=== PATIENT | female | born 1935 | race Caucasian/White ===

== ENCOUNTER 2020-05-09 16:05 | Emergency (ER) | payer MEDICARE, SELFPAY ==
[2020-05-09] VITALS (28 sets, daily range): BP systolic 67–176; BP diastolic 43–96; PULSE 70–108; RESP 5–36; TEMP 35.8; O2SAT 85–100
--- NOTE | ~2020-05-09 | CT_ITS ---
EXAMINATION: CT cervical spine wo con DATE: 05/09/2020 17:35 INDICATION: Altered mental status. Neck pain. TECHNIQUE: Computed tomography (CT) of the cervical spine was performed without intravenous contrast. The dose-length product was 493 mGy-cm. Automated exposure control and iterative reconstruction tech nique were employed. COMPARISON: None FINDINGS: Study limited by motion artifact. There is fusion at C2-3. There is degenerative anterolist hesis at C3-4 and C4-5. There is disc narrowing and endplate hypertrophy at multiple levels including C4-5, C5-6, C6-7 and C7-T1. Odontoid process within normal limits. There is moderate multilevel face t and uncinate hypertrophy. There is patchy parenchymal consolidation of the upper lobes, partially v isualized. There is an endotracheal and NG tube present. IMPRESSION: 1. No acute fracture of the cervical spine. 2: Severe cervical spondylosis. Reviewed, dictated and finalized at location A. NE BUILDUP MECHANIC
--- NOTE | ~2020-05-09 | CT_ITS ---
EXAMINATION: CT brain wo con DATE: 05/09/2020 17:35 INDICATION: Altered mental status. Hypoxia. Vomiting. TECHNIQUE: Computed tomography (CT) of the head was performed without intravenous contrast. The dose- length product was 605.33 mGy-cm. Automated exposure control and iterative reconstruction technique w ere employed. COMPARISON: None FINDINGS: Generalized atrophy. No acute infarction, mass or significant mass effect. Prominence of th e left frontal and parietal extra-axial space which may be due to atrophy, subdural hygroma or chroni c subdural hematoma. No midline shift. No ventriculomegaly. Basilar cisterns are patent. Mild mucosal thickening of the ethmoid sinuses. Air-fluid levels in the sphenoid sinuses suggesting acute sinusit is. Mastoids are pneumatized. No depressed skull fractures. IMPRESSION: 1. Prominence of the left frontal and parietal extra-axial space which may be due to atrophy, subdura l hygroma or chronic subdural hematoma. 2: Moderate sinusitis, possibly acute. Reviewed, dictated and finalized at location A. Y EQUIPMENT OPERATING ENGINEER IMPRESSION: 1. Prominence of the left frontal and parietal extra-axial space which may be d ue to atrophy, subdural hygroma or chronic subdural hematoma. 2: Moderate sinusitis, possibly acute.
--- NOTE | ~2020-05-09 | CT_ITS ---
EXAMINATION: CTA chest PE abdomen pel DATE: 05/09/2020 17:51 INSTRUCTOR INDUSTRIAL DESIGN INDICATION: Hypoxia and vomiting TECHNIQUE: Computed tomographic angiography (CTA) of the chest, abdomen, and pelvis was performed wit hout and with 100 mL Omnipaque-350 intravenous contrast. The dose-length product was 2351.56 mGy-cm. Maximum intensity projection 3D-reconstructions of the aorta and other arteries were constructed by silas eckert technologist on a separate workstation. Automated exposure control and iterative reconstruction te lor were employed. COMPARISON: CT dated 07/07/2013 FINDINGS: CHEST CTA: Study is technically adequate without evidence for pulmonary embolism. Heart size normal. Small pleur al effusions. No significant pericardial effusion. There is an endotracheal tube present. NG tube coi led in the distal esophagus. There is extensive bilateral airspace consolidation involving all lobes, most confluent in the lower lobes. No significant endobronchial lesions. No thoracic lymphadenopathy . ABDOMEN AND PELVIS CTA: Fatty infiltration of the liver. Calcified granulomas of the spleen. The pancreas, right adrenal glan d and right kidney are unremarkable. There are left renal cysts. Gallbladder is present. There is mod erate gastric distention. No obstructing lesion is identified. No free air. There is a Garza catheter in the bladder. Status post hysterectomy. Colonic diverticulosis without evidence for diverticulitis . Surgical changes consistent with fusion at L4-5. Moderate lumbar spondylosis. 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 Gallbladder is present. IMPRESSION: 1. Extensive patchy bilateral airspace consolidation most confluent in the lower lobes. Differential diagnosis includes pneumonia and/or edema. 2: Small pleural effusions. 3: No evidence for pulmonary embolism. Reviewed, dictated and finalized at location A. RUCTOR INDUSTRIAL DESIGN IMPRESSION: 1. Extensive patchy bilateral airspace consolidation most confluent in the lowe r lobes. Differential diagnosis includes pneumonia and/or edema. 2: Small pleural effusions. 3: No evidence for pulmonary embolism.
--- NOTE | ~2020-05-09 | XR_ITS ---
XR chest ET placement 05/09/2020 16:44 Indication: Respiratory distress. Intubation. Procedure: AP portable chest Comparison: 07/08/2013 Findings: Endotracheal tube tip 2.4 cm above the lori. NG tube is coiled in the distal esophagus. H eart size is normal. There is bilateral extensive airspace disease with curly B lines. No significant effusion or pneumothorax. Pacemaker leads in expected position. Impression: 1: Extensive bilateral airspace disease with perihilar predominance, most likely edema versus pneumon ia. 2: NG tube coiled in the distal esophagus, recommend advancement. Reviewed, dictated and finalized at location A. DCAST TECHNICIAN Impression: 1: Extensive bilateral airspace disease with perihilar predominance, most likel y edema versus pneumonia. 2: NG tube coiled in the distal esophagus, recommend advancement.
--- NOTE | 2020-05-09 16:16 | PC.NURSE ---
IO removed from left leg with tip intact.
--- NOTE | 2020-05-09 16:23 | PC.NURSE ---
Etomidate 15 mg and [id number] mg given IV for intubation.
--- NOTE | 2020-05-09 16:26 | PC.NURSE ---
Intubated with 7.5 ET tube. Placement verified with co2 and bilateral breath sounds.
--- NOTE | 2020-05-09 16:30 | ECG_ITS ---
Measurements Intervals [place] Rate: 70 P: 155 PA: 250 QRS: -59 QRSD: 122 T: 69 QT: 472 QTc: 511 Interpretive Statements ELECTRONIC ATRIAL PACEMAKER RIGHT BUNDLE BRANCH BLOCK LEFT ANTERIOR FASCICULAR BLOCK LEFT VENTRICULAR HYPERTROPHY WITH ST-T CHANGE BASELINE ARTIFACT- I, II, III, AVR, AVF, V4-V6 ABNORMAL ECG Electronically Signed On 05-09-2020 16:50:57 ONCOLOGY REP by Tristin Henry D.O.
--- NOTE | 2020-05-09 16:44 | ED.GENADULT ---
HPI - General Adult General Chief complaint: Cardiac Arrest/CPR Stated complaint: POST CARDIAC ARREST Time Seen by Provider: 05/09/20 16:30 Source: EMS History of Present Illness HPI narrative: Patient is a 84 y/o female brought in by EMS for cardiac arrest. Patient initially called EMS for SOB after doing some raking in the yard.. When police first arrived at the scene, she was cyanotic and became unresponsive. CPR was started. She was pulseless and her rhythm was in PEA when EMS arrived. Patient was coded according to ACLS protocol. She received multiple doses of Epi and Gonzalo airway was inserted. She regained spontaneous circulation prior to arrival. EMS estimates 25 minute of downtime. Related Data Home Medications Medication Instructions Recorded Confirmed apixaban [Eliquis] mg 05/09/20 empagliflozin [Jardiance] mg 05/09/20 furosemide 05/09/20 05/09/20 lisinopril 05/09/20 lovastatin mg 05/09/20 omeprazole 05/09/20 potassium chloride [Klor-Con M20] meq PO 05/09/20 sotalol 05/09/20 tramadol 50 mg PO Q6H PRN 05/09/20 05/09/20 Allergies Allergy/AdvReac Type Severity Reaction Status Date / Time No Known Allergies Allergy Verified 05/09/20 18:32 Review of Systems Review of Systems: ROS unobtainable: Yes unobtainable due to medical condition Exam Const: Orientation/consciousness: patient obtunded and Other orientation findings (no response to painful stimuli) HENMT: Head: normocephalic Ears: external ears normal General nose exam: Normal external nose present Mouth: Yes other (Gonzalo airway in place) Eyes: General: appearance normal, both eyes and all related structures Conjunctivae: conjunctivae normal Pupils: Pupils not reactive Neck: Neck: normal visual inspection Chest: Chest palpation & inspection: normal inspection of the chest and Pacemaker present Resp: Effort & Inspection: other (manually bagged, occasional spontaneous breath) Auscultation: crackles and rales Cardio: Rate: regular rate Rhythm: regular rhythm GI: GI Palp: No abdominal tenderness and Yes Soft to palpation Skin: General skin exam: normal color and turgor normal Neuro: General: other (non response to painful stimuli) Motor exam (neuro): Other motor observations present (some jerking movement noted, no response to pain) Extrem: General: normal to inspection, full ROM and no pedal edema Course Reevaluation(s) Reevaluation #1: Discussed with family, who would like patient transferred to [place] for further evaluation. Will contact [facility] for possible transfer. Date: 05/09/20 Time: 18:25 Consultations Consultation #1: Discussed with Dr. 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 However, he will not be accepting patient to his service. Date: 05/09/20 Time: 18:18 Consultation #2: Discussed with TRINI Buenrostro (neurosurgery) at [facility], who agrees to accept the patient to ED. Dr. Mullins (EDP) will accept. Date: 05/09/20 Time: 19:40 Vital Signs Vital signs: Vital Signs Temperature 35.8 C L 05/09/20 16:02 Pulse Rate 76 05/09/20 16:02 Respiratory Rate 22 H 05/09/20 16:02 Blood Pressure 176/96 H 05/09/20 16:02 Temperature 35.8 C L 05/09/20 16:02 Pulse Rate 78 05/09/20 22:30 Respiratory Rate 32 H 05/09/20 21:08 Blood Pressure 102/78 05/09/20 21:08 Pulse Oximetry 93 05/09/20 22:30 Procedures Intubation Intubation #1: Intubation Date: 05/09/20 Intubation Time: 16:20 Time out performed: Yes sedative: Etomidate Mg Given: 15 Laryngoscope: fiber optic video scope Tube Size (cm): 7.5 Method of Intubation: orotracheal Tube Placement Confirmation: visualized tube passing through cords Patient Tolerated Procedure: well Intubation Complications: none Additional Comments: gastric content is noted in mouth and pharynx suggesting recent aspiratio
--- NOTE | 2020-05-09 16:45 | PC.NURSE ---
18 fr salem sump placed to right nare. placement verified with gastric contents and xray. copious amount of return from tube.
[2020-05-09 17:00] LABS: Basophils Absolute Auto 0.1 K/mm3 (0.0-0.1); Basophils Percent Auto 0.6 % (0.2-1.2); Eosinophils Absolute Auto 0.1 K/mm3 (0-0.3); Eosinophils Percent Auto 0.9 % (0-4.4); Hematocrit 51.9 % (37.0-47.0); Hemoglobin 16.3 g/dL (12.0-15.0); Immature Granulocyte Absolute 0.29 K/mm3 (0.00-0.031); Immature Granulocyte Percent A 2.2 % (0-0.5); Lymphocytes Absolute Auto 6.06 K/mm3 (0.9-3.2); Lymphocytes Percent Auto 46.4 % (18.3-44.2); Mean Corpuscular HGB Conc 31.4 g/dl (32-36); Mean Corpuscular Hemoglobin 28.3 pg (26-34); Mean Corpuscular Volume 90.3 fl (80-100); Mean Platelet Volume 10.3 fl (7.4-10.4); Monocytes Absolute Auto 0.5 K/mm3 (0.1-0.6); Monocytes Percent Auto 4.1 % (2.6-8.5); Neutrophils Percent Auto 45.8 % (45.5-73.1); Platelet Count Result 219 k/mm3 (150-375); Red Blood Count 5.75 M/mm3 (4.2-5.4); Red Cell Distribution Width 14.6 % (11.5-14.5); White Blood Count 13.1 K/mm3 (4.5-10.0)
--- NOTE | 2020-05-09 17:00 | PC.NURSE ---
To CT with nurse and resp staff.
[2020-05-09 17:10] LABS: INR 1.1; Prothrombin Time 14.7 Seconds (11.1-14.7)
[2020-05-09 17:11] LABS: Partial Thromboplastin Time 29.1 SECONDS (22.3-36.8)
[2020-05-09 17:11] LABS: Estimated CRCL calculation 58 ml/min; Estimated Glomerular Filt Rate > 60
[2020-05-09] MEDS: PROPOFOL IV EMULSION 200 MG/20 ML VIAL 100 MG IV PUSH (17:20)
--- NOTE | 2020-05-09 17:20 | PC.NURSE ---
Pt having jerking movements to extremities, unable to do CT due to movement. ERP aware and orders received.
[2020-05-09 17:22] LABS: Lactic Acid Reflex 8.6 mmol/L (0.7-2.1)
[2020-05-09 17:32] LABS: Albumin Level 3.9 g/dL (3.5-5.1); Alkaline Phosphatase 141 U/L (38-126); Anion Gap 12 mmol/L (8-16); Aspartate Amino Transferase 252 U/L (14-36); Bilirubin,Total 0.5 mg/dL (0.2-1.3); Blood Urea Nitrogen 17 mg/dL (7-17); Calcium 8.1 mg/dL (8.4-10.2); Carbon Dioxide 21 mmol/L (22-30); Chloride 102 mmol/L (98-107); Estimated CRCL calculation 52 ml/min; Estimated Glomerular Filt Rate 60; Glucose 324 mg/dL (65-105); Lipase 197 U/L (23-300); Potassium 5.2 mmol/L (3.4-5.0); Sodium 135 mmol/L (137-145); Troponin I 0.038 ng/mL (0.000-0.034)
[2020-05-09 17:35] LABS: Alanine Aminotransferase 136 U/L (4-35)
[2020-05-09 17:45] LABS: Alveolar/Arterial O2 Gradient 602.4 mmHg; Base Excess ABG -11.3 mEq/l (+/-2.0); Fractional Inspired Oxygen 100 %; HCO3 ABG 16.3 mEq/l (22.0-26.0); Oxygen Content ABG 16.1 %vol (16.0-22.0); Oxygen Saturation ABG 89.3 % (95.0-100.0); Oxyhemoglobin 86.6 % THb (90.0-100.0); PCO2 ABG 42.8 mmHg (35.0-45.0); PO2 ABG 67.8 mmHg (80.0-100.0); PO2 FiO2 Ratio Arterial Blood 0.68 %; Total Hemoglobin 13.2 g/dL (12.0-18.0)
[2020-05-09 17:46] LABS: Device VENTILATOR; Modified Allen's Test Pass; Site Drawn RIGHT RADIAL; pH ABG 7.199 (7.350-7.450)
[2020-05-09 17:47] LABS: Arterial Blood Gas PEEP 5 cmH2O; Arterial Blood Gas Tidal Volume 500 ml; Arterial Blood Gas Vent Mode CMV; Arterial Blood Gas Ventilator rate 14 /MIN
[2020-05-09] MEDS: SODIUM BICARBONATE 8.4% 50 MEQ/50 ML SYRINGE IV PUSH (18:00)
[2020-05-09 18:27] LABS: Add Urine Microscopic? YES; Appearance Urine Cloudy (Clear); Bacteria Urine Trace /hpf; Bilirubin Urine Negative (Negative); Blood Urine 1+ (Negative); Color Urine Yellow (Yellow); Glucose Urine UA 3+ mg/dL (Negative); Ketones Urine Negative (Negative); Leukocyte Esterase Ur Negative LEU/UL (Negative); Mucus Urine Rare /lpf; Nitrate Urine Negative (Negative); Protein Urine 3+ mg/dL (Negative); RBC Urine 21-50 /hpf (0-2); Specific Grav Ur 1.026 (1.001-1.035); Squamous Epithelial Cell Urine Rare /hpf (Few); Urobilinogen Urine Negative mg/dL (<2.0); WBC Urine 16-20 /hpf
[2020-05-09] MEDS: SODIUM CHLORIDE 0.9% IV 1,000 ML 999 ML IV CONT (18:34)
--- NOTE | 2020-05-09 19:48 | PC.NURSE ---
called [facility] to request transport to [facility]. ETA midnight. Called [facility] to request transport to [facility] ER.
--- NOTE | 2020-05-09 19:50 | PC.NURSE ---
Called [facility] to request transport to [facility] ER. ETA midnight. Called [facility] to request transport to [facility] ER. Declined because no trucks available for transfers tonight.
[2020-05-09 19:58] LABS: Reflex Lactic Acid Yes or No Add Lactic
--- NOTE | 2020-05-09 20:00 | PC.NURSE ---
called [facility] to request transport to [facility] ER. Declined
--- NOTE | 2020-05-09 20:00 | PC.NURSE ---
EDP now requesting lights and sirens. Called [facility] to request lights and sirens.
[2020-05-09 20:23] LABS: Troponin I 0.288 ng/mL (0.000-0.034)
[2020-05-10 12:21] LABS: SARS-CoV-2 RNA PCR Negative
== END 2020-05-09 22:33 | disposition short-term general hospital (02) ==
PROVIDERS: Emergency Medicine; Emergency Provider Emergency Medicine; PCP Internal Medicine
DX: I46.9 Cardiac arrest, cause unspecified (principal); I62.03 Nontraumatic chronic subdural hemorrhage; J69.0 Pneumonitis due to inhalation of food and vomit; T17.218A Gastric contents in pharynx causing other injury, initial encounter; Z20.828 Contact with and (suspected) exposure to other viral communicable diseases; Z79.01 Long term (current) use of anticoagulants; Z95.0 Presence of cardiac pacemaker; I45.2 Bifascicular block; I51.7 Cardiomegaly; J32.9 Chronic sinusitis, unspecified; M47.812 Spondylosis without myelopathy or radiculopathy, cervical region; R82.998 Other abnormal findings in urine
CPT/HCPCS: 31500; 36415; 36600; 70450; 71275; 72125; 74177; 80053; 81001; 82805; 83605; 83690; 84484; 85025; 85610; 85730; 87040; 87086; 93005; 96361; 96365; 96375; 99291; C9803; J0330; J2543; J2704; J7030; Q9967; U0003; U0005